=== PATIENT | female | born 1990 | race Hispanic/Latino ===

== ENCOUNTER 2020-07-01 14:25 | Emergency (ER) | payer SELFPAY ==
--- NOTE | 2020-07-01 14:52 | Event Note ---
ED Screening Note Date of service: 07/01/20 Time: 14:47 ED Screening Note: Patient has a witnessed seizure this morning approxi about 7:00 in the morning. EMS was called to the scene. Patient states she has not had a seizure since she was a child. She is currently on no medication. States that she has a headache left side of chest is painful tongue where she bit is painful. And difficulty with swallowing. Patient reports that she hit the back of her head examination shows she has tenderness to the back of her head and back of her neck. CT scan of cervical without contrast and brain without contrast. This initial assessment/diagnostic orders/clinical plan/treatment(s) is/are subject to change based on patients health status, clinical progression and re- assessment by fellow clinical providers in the ED. Further treatment and workup at subsequent clinical providers discretion. Patient/guardian urged not to elope from the ED as their condition may be serious if not clinically assessed and managed. Initial orders include:
[2020-07-01 15:34] LABS: Basophils % (Auto) 0.2 % (0.0-1.8); Eosinophils # (Auto) 0.1 K/mm3 (0.0-0.4); Eosinophils % (Auto) 0.4 % (0.0-4.3); Hematocrit 41.2 % (30.3-42.9); Hemoglobin 13.6 gm/dl (10.1-14.3); Lymphocytes # (Auto) 2.2 K/mm3 (1.2-5.4); Lymphocytes % (Auto) 17.4 % (13.4-35.0); Mean Corpuscular HGB Conc 33 % (30-34); Mean Corpuscular Volume 87 fl (79-97); Monocytes # (Auto) 0.8 K/mm3 (0.0-0.8); Monocytes % (Auto) 6.3 % (0.0-7.3); Platelet Count 242 K/mm3 (140-440); Red Blood Count 4.71 M/mm3 (3.65-5.03); Red Cell Distribution Width 14.3 % (13.2-15.2)
--- NOTE | 2020-07-01 15:39 | Cat Scan Report ---
CT head/brain wo con INDICATION: Seizure, hit back of head, tender. TECHNIQUE: Routine CT head without contrast. All CT scans at this location are performed using CT dose reduction for ALARA by means of automated exposure control. COMPARISON: None. FINDINGS: BRAIN / INTRACRANIAL CONTENTS: No acute hemorrhage, brain edema, mass effect, or hydrocephalus. Kendy l farris-white differentiation. No chronic infarct or focal atrophy. Normal brain volume and ventricula r/sulcal size for age. CALVARIUM/SKULL BASE/CRANIOCERVICAL JUNCTION: No evidence of fracture. ORBITS: No significant abnormality of visualized orbits. SINUSES / MASTOIDS: No significant abnormality of visualized sinuses and mastoid air cells. ADDITIONAL FINDINGS: None. IMPRESSION: 1. No acute post-traumatic intracranial abnormality. Signer Name: Demar Liang MD Signed: 07/01/2020 3:35 PM Workstation Name: [id number]
--- NOTE | 2020-07-01 15:43 | Cat Scan Report ---
CT CERVICAL SPINE: 07/01/2020 INDICATION / CLINICAL INFORMATION: Seizure hit back of head tender and neck tendernes. COMPARISON: None available. FINDINGS: CT images of the cervical spine were obtained. Images are evaluated in the axial, coronal, and sagitt al planes. There is no evidence of acute osseous injury. Vertebral body alignment is well preserved. There is no evidence of canal or foraminal narrowing. CRANIOCERVICAL JUNCTION: Unremarkable. PARASPINAL STRUCTURES: Unremarkable IMPRESSION: No acute abnormality. Negative exam. All CT scans at this location are performed using dose reduction to ALARA by means of automated expos ure control. Signer Name: Misael Stearns MD Signed: 07/01/2020 3:39 PM Workstation Name: [id number]
[2020-07-01 15:57] LABS: Alanine Aminotransferase 16 units/L (7-56); Albumin 3.9 g/dL (3.9-5); Blood Urea Nitrogen 8 mg/dL (7-17); Calcium 8.5 mg/dL (8.4-10.2); Hemolysis Index 11
--- NOTE | 2020-07-01 16:09 | XRay Report ---
LEFT RIBS 5 VIEWS INDICATION: Seizure with left rib pain. COMPARISON: None. IMPRESSION: No acute osseous or soft tissue abnormality. The left lung is well-aerated. Signer Name: Jordi Cat Jr, MD Signed: 07/01/2020 4:05 PM Workstation Name: [id number]
[2020-07-01 16:16] LABS: BUN/Creatinine Ratio 11
[2020-07-01 16:46] VITALS: BP 116/74
--- NOTE | 2020-07-01 16:57 | Emergency Department Report ---
ED General Adult HPI - General Chief complaint: Seizure Stated complaint: SEIZURE Time Seen by Provider: 07/01/20 16:38 Source: patient Mode of arrival: Ambulatory Limitations: No Limitations - History of Present Illness Initial comments: This is a 30-year-old female who apparently had a generalized seizure this morning. Patient states that as a child she was diagnosed with complex partial seizures. Then she was told she had PTSD. She has not had any routine medical care for a while. She thinks her last seizure was in March but she did not present to an emergency department or a physician thereof. This morning she was observed to have tonic-clonic movements. She states that she woke up and there was blood on her pillow. Later she was told by her mother that she bit her tongue twice. Subsequent to the above event the patient has been essentially experiencing vertigo. She states that she has some spinning when she walks albeit apparently very mild. She is able to walk without difficulty. She does not describe any loss of coordination or focal weakness or numbness. She denies headache. She does admit the above history of PTSD. -: Sudden, minutes(s) Severity scale (0 -10): 0 Associated Symptoms: denies other symptoms - Related Data Previous Rx's Medication Instructions Recorded Last Taken Type levETIRAcetam [Keppra TAB] 500 mg PO BID #60 tablet 07/01/20 Unknown Rx Allergies Allergy/AdvReac Type Severity Reaction Status Date / Time No Known Allergies Allergy Unverified 07/01/20 14:35 ED Review of Systems ROS: Stated complaint: SEIZURE Other details as noted in HPI Constitutional: denies: chills, fever Eyes: denies: eye pain, vision change ENT: other. denies: ear pain, throat pain Respiratory: denies: cough, shortness of breath Cardiovascular: denies: chest pain, palpitations Endocrine: no symptoms reported Gastrointestinal: denies: abdominal pain, nausea, diarrhea Genitourinary: denies: urgency, dysuria, discharge Musculoskeletal: denies: back pain, arthralgia Skin: denies: rash, lesions Neurological: denies: headache, weakness, paresthesias Psychiatric: anxiety. denies: depression Hematological/Lymphatic: denies: easy bleeding, easy bruising ED Past Medical Hx - Past Medical History Previous Medical History?: Yes Hx Seizures: Yes Additional medical history: endometriosis - Social History Substance Use Type: None - Medications Home Medications: Home Medications Medication Instructions Recorded Confirmed Last Taken Type levETIRAcetam [Keppra TAB] 500 mg PO BID #60 tablet 07/01/20 Unknown Rx ED Physical Exam - General Limitations: No Limitations General appearance: alert, in no apparent distress - Head Head exam: Present: atraumatic, normocephalic - Eye Eye exam: Present: normal appearance. Absent: scleral icterus - ENT ENT exam: Present: mucous membranes moist, other (Patient did have tongue abrasions noted) - Neck Neck exam: Present: normal inspection. Absent: tenderness, meningismus - Respiratory Respiratory exam: Present: normal lung sounds bilaterally. Absent: respiratory distress, chest wall tenderness - Cardiovascular Cardiovascular Exam: Present: regular rate, normal rhythm. Absent: systolic murmur, diastolic murmur, rubs, gallop - GI/Abdominal GI/Abdominal exam: Present: soft, normal bowel sounds. Absent: distended, tenderness, guarding, rebound - Extremities Exam Extremities exam: Present: normal inspection - Back Exam Back exam: Present: normal inspection - Neurological Exam Neurological exam: Present: alert, oriented X3, CN II-XII intact. Absent: motor sensory deficit - Psychiatric Psychiatric exam: Present: normal affect, normal mood - Skin Skin exam: Present: warm, dry, intact, normal color. Absent: rash ED Course Vital Signs 07/01/20 07/01/20 07/01/20 14:36 16:30 16:35 Temperature 99.3 F 98.6 F Pulse Rate 77 84 Respiratory 18 18 18 Rate Blood Pressure 139/86 Blood Pressure 116/74 [Left] O2 Sat by Pulse 100 100 100 Oximetry - Reevaluation(s) Reevaluation #1: History was consistent with a [place] seizure as well as with tongue abrasions. The patient will be started on Keppra. She is given recommendations regarding driving restrictions and follow-up. 07/01/20 16:56 Reevaluation #2: Apparently the PA was informed that the patient was having some left-sided chest soreness after the seizure. She did not relate that to me at all. A rib series was negative. She did not complain of any neck pain. A CT of her cervical spine was negative. CT of her head was also normal. 07/01/20 16:56 ED Medical Decision Making - Lab Data Result diagrams: 07/01/20 15:08 07/01/20 15:08 Laboratory Results - last 24 hr 07/01/20 07/01/20 15:08 15:08 WBC 12.5 H RBC 4.71 Hgb 13.6 Hct 41.2 MCV 87 MCH 29 MCHC 33 RDW 14.3 Plt Count 242 Lymph % (Auto) 17.4 [place] % (Auto) 6.3 Eos % (Auto) 0.4 Baso % (Auto) 0.2 Lymph # (Auto) 2.2 [place] # (Auto) 0.8 Eos # (Auto) 0.1 Baso # (Auto) 0.0 Seg Neutrophils % 75.7 H Seg Neutrophils # 9.4 H Sodium 140 Potassium 3.8 Chloride 105.0 Carbon Dioxide 23 Anion Gap 16 BUN 8 Creatinine 0.7 Estimated GFR > 60 BUN/Creatinine Ratio 11 Glucose 88 Calcium 8.5 Total Bilirubin 0.40 AST 20 ALT 16 Alkaline Phosphatase 69 Total Protein 6.5 Albumin 3.9 Albumin/Globulin Ratio 1.5 - Radiology Data Radiology results: report reviewed (No acute findings) Critical care attestation.: If time is entered above; I have spent that time in minutes in the direct care of this critically ill patient, excluding procedure time. ED Disposition Clinical Impression: Generalized seizure, History of seizure disorder Disposition: DC-01 TO HOME OR SELFCARE Is pt being admited?: No Does the pt Need Aspirin: No Condition: Stable Instructions: Seizure, Adult, [id number] Additional Instructions: Do not drive until you are cleared by a neurologist. Do not operate power machinery also as this could be dangerous if you have a seizure. We are going to begin seizure medication. Make sure you follow-up for continued care and evaluation. Return to the emergency department any acute change or problem. Prescriptions: levETIRAcetam [Keppra TAB] 500 mg PO BID #60 tablet Referrals: [facility] [Provider Group] - 3-5 Days Time of Disposition: 16:59
[2020-07-01] MEDS ORDERED: levETIRAcetam 500 MG TAB PO ONE (17:00)
[2020-07-01 17:13] LABS: Bilirubin,Urine NEG (Negative); Blood,Urine MOD (Negative); Color,Urine Yellow (Yellow); Mucus,Urine FEW /HPF; Protein,Urine <15 mg/dL mg/dL (Negative); Urobilinogen,Urine < 2.0 mg/dL (<2.0)
== END 2020-07-01 17:25 | disposition home or self-care (01) ==
LOC: ED 14:25
DX: G40.89 Other seizures (principal); Z79.899 Other long term (current) drug therapy
CPT/HCPCS: 36415; 70450; 72125; 80053; 81001; 85025